=== PATIENT | female | born 1980 | race Two or more races ===

== ENCOUNTER 2018-12-30 12:28 | Emergency (ER) | payer MEDICAID ==
[~2018-12-30] VITALS: Ht 157.5 cm; Wt 75.7 kg
[2018-12-30 12:28] VITALS: BP 106/79
== END 2018-12-30 14:58 | disposition home or self-care (01) ==
LOC: ER 12:34
DX: J40 Bronchitis, not specified as acute or chronic (principal); Z88.0 Allergy status to penicillin
CPT/HCPCS: 71045-TC

== ENCOUNTER 2019-03-23 23:44 | Emergency (ER) ==
[~2019-03-23] VITALS: Ht 165.1 cm; Wt 76.2 kg
--- NOTE | 2019-03-24 00:13 | NUR ---
BIB SELF FROM HOME. AAOX4. NAD. BREATHING EVEN AND UNLABORED. AMBULATORY. [place] SPEAKING, FEMALE GEOLOGICAL ENGINEERING TEACHER AT BEDSIDE TRANSLATING FOR PT. C/O ABDOMINAL PAIN X 2 DAY. REPORTS NAUSEA AND WATTERY DIARRHEA. PT RATE HER PAIN 06/10. DENIES CP. TO ER BED 12. MD AT BEDSIDE FOR AHMET. AWAITING ORDERS.
[2019-03-24] MEDS ORDERED: DICYCLOMINE HCL INJ 20 MG/2 ML AMPUL IM ONE ×2 (00:14→00:30)
[2019-03-24] MEDS ORDERED: ONDANSETRON HCL/PF 4 MG/2 ML VIAL ONE (00:14)
--- NOTE | 2019-03-24 00:18 | NUR ---
IV LINE OBTAINED ON L AC 20G. BLOOD DRAWN AND PSYCHOLOGY TEACHER AT BEDSIDE.
[2019-03-24 00:24] LABS: BASOPHILS % (AUTO) 0.2 % (0.0-2.0); EOSINOPHILS % (AUTO) 0.7 % (0.0-6.0); HEMATOCRIT 37 % (33-45); HEMOGLOBIN 12.6 g/dL (11.5-14.8); LYMPHOCYTES # (AUTO) 1.4 /CMM (0.8-4.8); LYMPHOCYTES % (AUTO) 11.6 % (20.0-44.0); MEAN CORPUSCULAR HGB CONC 34 g/dl (31.0-36.0); MEAN CORPUSCULAR VOLUME 85 fL (82-100); MONOCYTES # (AUTO) 0.7 /CMM (0.1-1.30); MONOCYTES % (AUTO) 5.7 % (2.0-12.0); NEUTROPHILS # (AUTO) 10.1 /CMM (1.8-8.9); NEUTROPHILS % (AUTO) 81.8 % (43.0-81.0); PLATELET COUNT (AUTO) 286 /CMM (150-450); RED BLOOD CELL COUNT(AUTO) 4.33 MIL/uL (4.0-5.2); WHITE BLOOD COUNT (AUTO) 12.3 K/uL (4.3-11.0)
[2019-03-24 00:26] LABS: APPEARANCE,URINE Clear (CLEAR); BILIRUBIN,URINE Negative (NEGATIVE); BLOOD, URINE Small Ery/uL (NEGATIVE); COLOR,URINE Other (YELLOW); KETONES,URINE Negative (NEGATIVE); LEUKOCYTE ESTERASE ,URINE Negative (NEGATIVE); NITRITE, URINE Negative (NEGATIVE); PROTEIN,URINE Negative (NEGATIVE); UGLUCOSE Negative (NEGATIVE); UROBILINOGEN,URINE 0.2 EU/dL (0.2)
[2019-03-24] MEDS ORDERED: ONDANSETRON HCL/PF 4 MG/2 ML VIAL IVP ONE (00:30)
[2019-03-24] MEDS ORDERED: IV NS 0.9% 500 ML BAG IV ONE (00:30)
[2019-03-24 00:32] LABS: CALCIUM, SERUM 7.5 mg/dL (8.5-10.1); CREATININE 0.7 mg/dL (0.6-1.3); POTASSIUM 3.1 mmol/L (3.5-5.1)
[2019-03-24 00:37] LABS: ALBUMIN 3.3 g/dL (3.4-5.0); BILIRUBIN,DIRECT 0.1 mg/dL (0.0-0.2); BILIRUBIN,TOTAL 0.4 mg/dL (0.2-1.0); TOTAL PROTEIN, SERUM 6.9 g/dL (6.4-8.2)
--- NOTE | 2019-03-24 00:44 | NUR ---
PT BACK FROM RADIOLOGY
[2019-03-24] MEDS ORDERED: POTASSIUM CHLORIDE 20 MEQ TAB.PRT.SR PO ONE ×2 (01:30→02:24)
[2019-03-24 01:37] LABS: BACTERIA,URINE Rare /HPF (None Seen); RBC,URINE 0-2 /HPF (0-2); SQUAMOUS EPITHELIAL CELL,UR Rare /HPF (None Seen); WBC,URINE 0-2 /HPF (0-3)
[2019-03-24 02:20] VITALS: BP 105/72
--- NOTE | 2019-03-24 02:31 | NUR ---
Patient discharged to home in stable condition. Written and verbal after care instructions given. Patient verbalizes understanding of instruction.IV removed. Catheter intact and site benign. Pressure and 4x4 applied to site. No bleeding noted. Pt ambulatory with a steady gait
== END 2019-03-24 02:32 | disposition home or self-care (01) ==
LOC: ER 23:44
DX: K52.9 Noninfective gastroenteritis and colitis, unspecified (principal); Z88.0 Allergy status to penicillin
CPT/HCPCS: 36415; 74176; 80048; 80076; 81001; 83690; 84703; 85025; 85730; 96372; 96374; 99284; J0500; J2405; J7040; 81000-TC

== ENCOUNTER 2019-06-19 15:56 | Emergency (ER) | payer MEDICAID ==
[~2019-06-19] VITALS: Ht 165.1 cm; Wt 81.2 kg
[2019-06-19 16:06] VITALS: BP 104/69
[2019-06-19] MEDS ORDERED: diphenhydrAMINE HCL 50 MG CAPSULE ONE (16:48)
[2019-06-19] MEDS ORDERED: predniSONE 20 MG TABLET ONE (16:48)
[2019-06-19] MEDS ORDERED: predniSONE 10 MG TABLET PO ONE (17:00)
[2019-06-19] MEDS ORDERED: diphenhydrAMINE HCL 50 MG CAPSULE PO ONE (17:00)
== END 2019-06-19 17:13 | disposition home or self-care (01) ==
LOC: ER 16:04
DX: R21 Rash and other nonspecific skin eruption (principal); Z88.0 Allergy status to penicillin
CPT/HCPCS: 99283; J7512; Q0163

== ENCOUNTER 2019-09-01 13:12 | Emergency (ER) | payer MEDICAID ==
[~2019-09-01] VITALS: Ht 157.5 cm; Wt 83.5 kg
--- NOTE | 2019-09-01 13:28 | NUR ---
BIB SELF 38 YEAR OLD FEMALE C/O HEADACHE X 2 MONTHS, WORSE TODAY, NOTED A SMALL LUMP ON THE HEAD. ALERT AND ORIENTED IN HER [place] LANGUAGE. BREATHING EVEN AND UNLABORED WITH NO DISTRESS NOTED. SKIN INTACT. WAITING TO BE SEEN BY
[2019-09-01] MEDS ORDERED: IV NS 0.9% 1,000 ML BAG IV ONE (14:00)
[2019-09-01] MEDS ORDERED: KETOROLAC TROMETHAMINE INJ 30 MG/ML VIAL IV ONE (14:00)
[2019-09-01] MEDS ORDERED: METOCLOPRAMIDE HCL 10 MG/2 ML VIAL IV ONE (14:00)
[2019-09-01] MEDS ORDERED: diphenhydrAMINE HCL 50 MG/ML VIAL IV ONE (14:00)
[2019-09-01] MEDS ORDERED: METOCLOPRAMIDE HCL 10 MG/2 ML VIAL ONE (14:04)
[2019-09-01] MEDS ORDERED: KETOROLAC TROMETHAMINE INJ 30 MG/ML VIAL ONE (14:04)
[2019-09-01] MEDS ORDERED: diphenhydrAMINE HCL 50 MG/ML VIAL ONE (14:04)
--- NOTE | 2019-09-01 14:16 | NUR ---
EKG DONE AT BEDSIDE
[2019-09-01 14:18] LABS: BASOPHILS % (AUTO) 0.6 % (0.0-2.0); EOSINOPHILS % (AUTO) 1.4 % (0.0-6.0); HEMATOCRIT 43 % (33-45); HEMOGLOBIN 14.1 g/dL (11.5-14.8); LYMPHOCYTES # (AUTO) 1.9 /CMM (0.8-4.8); LYMPHOCYTES % (AUTO) 25.5 % (20.0-44.0); MEAN CORPUSCULAR HGB CONC 33 g/dl (31.0-36.0); MEAN CORPUSCULAR VOLUME 87 fL (82-100); MONOCYTES # (AUTO) 0.6 /CMM (0.1-1.30); NEUTROPHILS # (AUTO) 4.7 /CMM (1.8-8.9); NEUTROPHILS % (AUTO) 64.5 % (43.0-81.0); PLATELET COUNT (AUTO) 280 /CMM (150-450); RED BLOOD CELL COUNT(AUTO) 4.92 MIL/uL (4.0-5.2); WHITE BLOOD COUNT (AUTO) 7.3 K/uL (4.3-11.0)
[2019-09-01 14:21] LABS: CARBON DIOXIDE 28 mmol/L (21-32); CHLORIDE 103 mmol/L (98-107); CREATININE 0.7 mg/dL (0.6-1.3); GLUCOSE 94 mg/dL (74-106); POTASSIUM 3.6 mmol/L (3.5-5.1); SODIUM SERUM 139 mmol/L (136-145); UREA NITROGEN, BLOOD 12 mg/dL (7-18)
--- NOTE | 2019-09-01 15:14 | NUR ---
URINE COLLECTED SENT TO LAB
--- NOTE | 2019-09-01 15:26 | NUR ---
Patient discharged to home in stable condition. Written and verbal after care instructions given. Patient verbalizes understanding of instruction. IV removed. Catheter intact and site benign. Pressure and 4x4 applied to site. No bleeding noted.
[2019-09-01 15:27] VITALS: BP 110/70
== END 2019-09-01 15:25 | disposition home or self-care (01) ==
LOC: ER 13:15
DX: G43.909 Migraine, unspecified, not intractable, without status migrainosus (principal); R07.89 Other chest pain; Z88.0 Allergy status to penicillin
CPT/HCPCS: 36415; 80048; 84484; 84703; 85025; 93005; 96374; 96375; 99284; J1200; J1885; J2765; J7030